=== PATIENT | male | born 1965 | race Caucasian/White ===

== ENCOUNTER 2016-06-06 06:54 | Inpatient (IN) | payer MEDICARE ==
[~2016-06-06] VITALS: Ht 175.3 cm; Wt 74.4 kg
[2016-06-06] MEDS ORDERED: ALTACE10 MG PO (08:16)
[2016-06-07 05:19] LABS: HEMOGLOBIN 12.6 gm/dl (14.0-17.5); RED BLOOD COUNT 3.91 M/UL (4.20-5.50); WHITE BLOOD COUNT 10.6 K/UL (4.5-11.0)
[2016-06-07 05:43] LABS: BUN/CREATININE RATIO 18 (0-10)
--- NOTE | 2016-06-08 04:17 | NUR ---
PT COMPLAINT OF INDIGESTION AND NAUSEA AND PAIN AROUND INCISION SITE AND IN BACK. PT STATES THAT HE HAS GERD BUT NOT HURT THIS BAD. GAVE PT 4MG OF ZOFRAN, PERCOCET AND 2MG MORPHINE. I ALSO LOOSENED HIS ABD BINDER WHICH HE STATED GAVE HIM SOME RELIEF. WILL CONTINUE TO MONITOR.
[2016-06-08 06:56] LABS: BUN/CREATININE RATIO 12 (0-10)
[2016-06-09 05:50] LABS: HEMOGLOBIN 13.9 gm/dl (14.0-17.5); RED BLOOD COUNT 4.3 M/UL (4.20-5.50)
[2016-06-09 05:51] LABS: WHITE BLOOD COUNT 14.8 K/UL (4.5-11.0)
[2016-06-09 06:08] LABS: BUN/CREATININE RATIO 18 (0-10)
[2016-06-10 05:54] LABS: RED BLOOD COUNT 4.32 M/UL (4.20-5.50); WHITE BLOOD COUNT 15.2 K/UL (4.5-11.0)
[2016-06-10] MEDS ORDERED: PERCOCET 5-3251 EACH PO (13:11)
[2016-06-10] MEDS ORDERED: PHENERGAN 25 MG25 M1 PO (13:13)
== END 2016-06-10 14:21 | disposition home or self-care (01) | DRG 406 ==
LOC: OR 06:54 → M/S 15:46 → OR 06-07 09:40 → M/S 06-07 09:41
PROVIDERS: ADMIT Surgery
PROC: 0FQ00ZZ Repair Liver, Open Approach (ICD-10-PCS; 2016-06-06)
PROC: 0FJ44ZZ Inspection of Gallbladder, Percutaneous Endoscopic Approach (ICD-10-PCS; 2016-06-06)
PROC: BF101ZZ Fluoroscopy of Bile Ducts using Low Osmolar Contrast (ICD-10-PCS; 2016-06-06)
PROC: 0FT40ZZ Resection of Gallbladder, Open Approach (ICD-10-PCS; principal; 2016-06-06 12:30)
PROC: 0FB00ZX Excision of Liver, Open Approach, Diagnostic (ICD-10-PCS; 2016-06-06 12:30)
DX: K80.20 Calculus of gallbladder without cholecystitis without obstruction (principal); R18.8 Other ascites; K91.3 Postprocedural intestinal obstruction; I10 Essential (primary) hypertension; Z84.89 Family history of other specified conditions; Z82.49 Family history of ischemic heart disease and other diseases of the circulatory system; Z82.5 Family history of asthma and other chronic lower respiratory diseases; F17.210 Nicotine dependence, cigarettes, uncomplicated; Y83.8 Other surgical procedures as the cause of abnormal reaction of the patient, or of later complication, without mention of misadventure at the time of the procedure; Y73.8 Miscellaneous gastroenterology and urology devices associated with adverse incidents, not elsewhere classified; K74.60 Unspecified cirrhosis of liver; K66.0 Peritoneal adhesions (postprocedural) (postinfection); Z53.31 Laparoscopic surgical procedure converted to open procedure
CPT/HCPCS: 36415; 47531; 80048; 80053; 80076; 85027; 85610; 85730; 94640; 94664; J0295; J0360; J1200; J1610; J1650; J1885; J2250; J2270; J2405; J2550; J2710; J3010; J7030; J7050; J7120; Q9962